=== PATIENT | female | born 2000 | race Caucasian/White ===

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

== ENCOUNTER 2020-03-10 15:04 | Emergency (ER) | payer BC ==
[2020-03-10] MEDS ORDERED: hydrOXYzine HCl 50 MG/ML SDV IM ONE (15:12)
[2020-03-10] MEDS ORDERED: cloNIDine 0.1 MG Tab PO ONE (15:12)
[2020-03-10] MEDS ORDERED: Albuterol/Ipratropium 3.0-0.5 MG/3 ML Neb Soln NEB ONE (15:13)
--- NOTE | 2020-03-10 15:31 | EDM.PDOC ---
ED HPI GENERAL MEDICAL PROBLEM - General Chief Complaint: General Stated Complaint: DIFFICULTY BREATHING Time Seen by Provider: 03/10/20 15:11 Source of Information: Reports: Patient History Limitations: Reports: No Limitations - History of Present Illness INITIAL COMMENTS - FREE TEXT/NARRATIVE: Patient comes into the emergency department with complaints of shortness of breath. Patient states that she started having difficulty breathing yesterday and needed to use her inhaler. This morning she ended up needing to use her inhaler couple times as well as using old neb albuterol treatments that were not covered. Patient began to panic for her throat was tight. And ended up presenting to the emergency department. Patient states that she has a difficult time breathing. She is breathing at a rapid rate and feels She cannot take a breath and is hyperventilating. Patient also states that her muscles feel tight throughout her body and she is unable to close her fingers due to the tightness.Patient is unable to complete a sentence for she is breathing extremely fast. Mother is with the patient states that she does not have a history of panic attacks but does have a history of asthma and has noticed that she is needed to increase her inhaler use more frequently lately. Patient and mother deny and covid-19 symptoms or concerns Onset: Sudden Quality: Reports: Other (hyperventilating ) Severity: Moderate Improves with: Reports: None Worsens with: Reports: None Associated Symptoms: Reports: No Other Symptoms - Related Data Allergies Allergy/AdvReac Type Severity Reaction Status Date / Time No Known Allergies Allergy Verified 03/10/20 16:18 Home Meds: Home Meds Etonogestrel [Nexplanon] 68 mg SQ ASDIRECTED 04/29/18 [History] PARoxetine HCL [Paroxetine HCl] 1 tab PO DAILY 04/29/18 [History] Albuterol/Ipratropium [DuoNeb 3.0-0.5 MG/3 ML] 3 ml .XX Q4H PRN #1 neb 03/10/20 [Rx] Past Medical History - Past Health History Medical/Surgical History: Denies Medical/Surgical History 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 Constitutional: Reports: No Symptoms HEENT: Reports: No Symptoms Respiratory: Reports: Shortness of Breath Cardiovascular: Reports: No Symptoms GI/Abdominal: Reports: No Symptoms : Reports: No Symptoms Musculoskeletal: Reports: No Symptoms Skin: Reports: No Symptoms Neurological: Reports: No Symptoms ED EXAM, GENERAL - Physical Exam Exam: See Below Exam Limited By: Respiratory Distress General Appearance: Anxious Eye Exam: Bilateral Eye: EOMI, PERRL Neck: Normal Inspection, Supple, Non-Tender, Full Range of Motion Respiratory/Chest: No Respiratory Distress, Lungs Clear, Normal Breath Sounds, Chest Non-Tender. No: Other Cardiovascular: Normal Peripheral Pulses, No Edema, Tachycardia Course - Orders/Labs/Meds Orders: Active Orders 24 hr Category Date Time Status RT Aerosol Therapy [RC] ASDIRECTED Care 03/10/20 15:13 Active Chest 1V Frontal [CR] Stat Exams 03/10/20 15:13 Ordered Meds: Medications Discontinued Medications Generic Name Dose Route Start Last Admin Trade Name Freq PRN Reason Stop Dose Admin Albuterol/Ipratropium 3 ml 03/10/20 15:13 Duoneb 3.0-0.5 Mg/3 Ml NEB 03/10/20 15:14 ONETIME ONE Clonidine HCl 0.1 mg 03/10/20 15:12 Catapres PO 03/10/20 15:13 ONETIME ONE Hydroxyzine HCl 50 mg 03/10/20 15:12 Vistaril IM 03/10/20 15:13 ONETIME ONE - Re-Assessments/Exams Free Text/Narrative Re-Assessment/Exam: 03/10/20 16:00 Pt anxiety attack symptoms resolved. Pt states she feels much better and is at her baseline. She no longer feel short of breath or feels like her throat is closing. Departure - Departure Time of Disposition: 16:30 Disposition: Home, Self-Care 01 Condition: Good Clinical Impression: Panic attack, Anxiety attack Asthma Qualifiers: Asthma severity: mild Asthma persistence: intermittent Asthma complication type: with acute exacerbation Qualified Code(s): J45.21 - Mild intermittent asthma with (acute) exacerbation - Discharge Information *PRESCRIPTION DRUG MONITORING PROGRAM REVIEWED*: Not Applicable *COPY OF PRESCRIPTION DRUG MONITORING REPORT IN PATIENT EDI: Not Applicable Instructions: Panic Attack, [id number], Asthma and Physical Activity, Albuterol; Ipratropium solution for inhalation Forms: ED Department Discharge Additional Instructions: 1. rest 2. Duoneb script sent with the patient 3. Continue all at home medications 4. Activity and diet as tolerated 5. Can take over the counter Tylenol or ibuprofen for any pain or discomfort 6. Follow up with PCP if symptoms continue, return, or progress 7. Call with any questions or concerns - My Orders Last 24 Hours: My Active Orders 03/10/20 15:13 RT Aerosol Therapy [RC] ASDIRECTED Chest 1V Frontal [CR] Stat - Assessment/Plan Last 24 Hours: My Active Orders 03/10/20 15:13 RT Aerosol Therapy [RC] ASDIRECTED Chest 1V Frontal [CR] Stat Assessment:: 1. anxiety attack 2. asthma Plan: 1. Clonidine 0.1mg PO for anxiety 2. Hydroxyzine 50mg IM for anxiety and antihistamine 3. Duoneb treatment in the ER 4. Chest x-ray completed in the ER 5. Duoneb script sent with the patient 6. Patient and nursing staff was updated regarding the plan of care 7. Education provided the patient regarding activity, diet, rest, [id number] medication modalities, and follow-up care was provided 8. Patient and family are agreeable to the above plan of care 9. All questions and concerns were addressed with the patient and family prior to discharge
--- NOTE | 2020-03-10 15:49 | CR ---
[id number] RAD/RAD Chest PA And Lateral EXAM: FRONTAL AND LATERAL CHEST INDICATION: Shortness of breath. COMPARISON: None. DISCUSSION: The heart and lungs are normal in appearance. IMPRESSION: 1. Negative exam. Sal Licona MD 03/10/20 1548 Thank you for allowing us to participate in the care of your patient.
[2020-03-10 16:16] VITALS: BP 143/89; PULSE 130
== END 2020-03-10 16:25 | disposition home or self-care (01) ==
LOC: VM.ED 15:04
DX: J45.21 Mild intermittent asthma with (acute) exacerbation (principal); F41.0 Panic disorder [episodic paroxysmal anxiety]; Z79.899 Other long term (current) drug therapy
CPT/HCPCS: 71046; 94640; 96372; 99285; A9270; J3410; 99283-GF; J7620-GY

== ENCOUNTER 2021-06-18 00:30 | Emergency (ER) | payer SELFPAY ==
[2021-06-18] MEDS ORDERED: Dexamethasone 4 MG/ML SDV IVPUSH ONE (00:59)
[2021-06-18] MEDS ORDERED: Metoclopramide 10 MG/2 ML SDV IVPUSH ONE (00:59)
[2021-06-18] MEDS ORDERED: diphenhydrAMINE 50 MG/ML SDV IVPUSH ONE (00:59)
[2021-06-18] MEDS ORDERED: Ketorolac 30 MG/ML SDV IVPUSH ONE (00:59)
[2021-06-18] MEDS ORDERED: Sodium Chloride 0.9% 1,000 ML IV SCH (01:00)
--- NOTE | 2021-06-18 01:18 | EDM.PDOC ---
ED HPI GENERAL MEDICAL PROBLEM - General Chief Complaint: Headache Stated Complaint: migraine Time Seen by Provider: 06/18/21 00:35 Source of Information: Reports: Patient History Limitations: Reports: No Limitations - History of Present Illness INITIAL COMMENTS - FREE TEXT/NARRATIVE: Patient presents to the Ed with complaints of headache for the last several days. SHe staets she donated blood on 06/12 and then on 06/13 had to leave class for headache, dizziness and feeling unwell. Headache is in the bilateral temporal area and had not changed. has had slight nausea and light sensitivity. Had had some migraine in the past, not typical for her. Has had a covid test since this headache arrived and it was negative. no fevers, coughs or body aches, has been eating and drinking normally. taking over the counter remedies for the pain Duration: Day(s):, Getting Worse Location: Reports: Head Severity: Moderate Improves with: Reports: None Treatments SUBASSEMBLER: Reports: Acetaminophen - Related Data Allergies Allergy/AdvReac Type Severity Reaction Status Date / Time No Known Allergies Allergy Verified 03/10/20 16:18 Home Meds: Home Meds Etonogestrel [Nexplanon] 68 mg SQ ASDIRECTED 04/29/18 [History] PARoxetine HCL [Paroxetine HCl] 1 tab PO DAILY 04/29/18 [History] Albuterol/Ipratropium [DuoNeb 3.0-0.5 MG/3 ML] 3 ml .XX Q4H PRN #1 neb 03/10/20 [Rx] Past Medical History - Past Health History Medical/Surgical History: Denies Medical/Surgical History Respiratory History: Reports: Asthma 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 Denies: Fever, Chills, Malaise, Fatigue HEENT: Denies: Contact Lenses, Eye Discharge, Throat Pain, Throat Swelling, Vision Change Respiratory: Denies: Shortness of Breath, Cough Cardiovascular: Denies: Chest Pain GI/Abdominal: Reports: Nausea. Denies: Anorexia, Diarrhea, Vomiting : Denies: Dysuria, Frequency Musculoskeletal: Denies: No Symptoms Neurological: Reports: Dizziness, Headache Psychiatric: Reports: Anxiety Hematologic/Lymphatic: Reports: No Symptoms - Physical Exam Exam: See Below General Appearance: Alert, Anxious Eye Exam: Bilateral Eye: EOMI, Normal Inspection, PERRL, Other (photophobia) Ears: Normal External Exam Nose: Normal Inspection, Normal Mucosa Throat/Mouth: Normal Inspection, Normal Lips, Normal Teeth Head Exam: Atraumatic, Normocephalic Neck: Normal Inspection, Supple, Non-Tender, Full Range of Motion, Other (chin to chest, no muscle tenderness or rigidity). No: Limited Range of Motion Respiratory/Chest: No Respiratory Distress, Lungs Clear, Normal Breath Sounds, Chest Non-Tender Cardiovascular: Normal Peripheral Pulses, Regular Rate, Rhythm, No Edema GI/Abdominal: Normal Bowel Sounds Neuro Exam (Abbreviated): Alert, Oriented, CN II-XII Intact, Normal Cognition, Normal Gait, No Motor/Sensory Deficits, Other (no nystagmus, displays capacity, normal gait, normal speech) Back Exam: Normal Inspection Extremities: Normal Inspection, Non-Tender Psychiatric: Normal Affect, Anxious Course - Orders/Labs/Meds Orders: Active Orders 24 hr Category Date Time Status Sodium Chloride 0.9% [Normal Saline] 1,000 ml Med 06/18/21 01:00 Active IV ASDIRECTED Medication Orders Sodium Chloride (Normal Saline) 1,000 mls @ 1,000 mls/hr IV ASDIRECTED ESTELITA Meds: Medications Generic Name Dose Route Start Last Admin Trade Name Freq PRN Reason Stop Dose Admin Sodium Chloride 1,000 mls @ 1,000 mls/hr 06/18/21 01:00 Normal Saline IV ASDIRECTED ESTELITA Discontinued Medications Generic Name Dose Route Start Last Admin Trade Name Freq PRN Reason Stop Dose Admin Dexamethasone 8 mg 06/18/21 00:59 Dexamethasone 4 Mg/Ml Sdv IVPUSH 06/18/21 01:00 ONETIME ONE Diphenhydramine HCl 50 mg 06/18/21 00:59 Diphenhydramine 50 Mg/Ml Sdv IVPUSH 06/18/21 01:00 ONETIME ONE Ketorolac Tromethamine 30 mg 06/18/21 00:59 Ketorolac 30 Mg/Ml Sdv IVPUSH 06/18/21 01:00 ONETIME ONE Metoclopramide HCl 10 mg 06/18/21 00:59 Metoclopramide 10 Mg/2 Ml Sdv IVPUSH 06/18/21 01:00 ONETIME ONE - Re-Assessments/Exams Free Text/Narrative Re-Assessment/Exam: 06/18/21 01:00 given reglan, toradol, decadron, benadryl and fluids. Non toxic appearing with normal vitals and neuro exam 01:30 feeling better, improved will send home after the fluids Departure - Departure Time of Disposition: 01:30 Disposition: Home, Self-Care 01 Clinical Impression: Headache, migraine, intractable - Discharge Information *PRESCRIPTION DRUG MONITORING PROGRAM REVIEWED*: Not Applicable *COPY OF PRESCRIPTION DRUG MONITORING REPORT IN PATIENT EDI: Not Applicable Instructions: General Headache Without Cause, [id number] Forms: ED Department Discharge, ED Return to Work/School Form Additional Instructions: drink plenty of fluids, eat magnesium rich food or take a supplement of 400 mg a day. - My Orders Last 24 Hours: My Active Orders 06/18/21 01:00 Sodium Chloride 0.9% [Normal Saline] 1,000 ml IV ASDIRECTED - Assessment/Plan Last 24 Hours: My Active Orders 06/18/21 01:00 Sodium Chloride 0.9% [Normal Saline] 1,000 ml IV ASDIRECTED
[2021-06-18 03:50] VITALS: BP 157/84; PULSE 90
== END 2021-06-18 02:05 | disposition home or self-care (01) ==
LOC: VM.ED 00:30
DX: G43.919 Migraine, unspecified, intractable, without status migrainosus (principal)
CPT/HCPCS: 96374; 96375; 99283; 99283-25; J1100; J1200; J1885; J2765